=== PATIENT | female | born 1945 | race Caucasian/White ===

== ENCOUNTER 2017-02-27 20:07 | Observation (INO) | payer OTHER, MEDICARE ==
--- NOTE | 2017-02-27 20:19 | PDOC ---
History of Present Illness - General History Source: Patient Exam Limitations: No Limitations - History of Present Illness Initial Comments: 02/27/17 21:02 The patient is a 71-year-old female, with a significant past medical history of hypertension, chronic anemia requiring transfusion, iron-deficiency anemia, EGD , who presents to the ED with weakness, fatigue, and body aches. The patient had a cough and cold-like symptoms a few weeks ago that resolved. She was urged to come into the ED by her daughter who states that she appeared yellow in color. On exam, pt does appear to be short of breath. Denies any fever, chills, nausea, vomiting, diarrhea, or abdominal pain. Denies any chest pain. PAST MEDICAL HISTORY: hypertension, chronic anemia requiring transfusion, iron- deficiency anemia, EGD PAST SURGICAL HISTORY: no significant history FAMILY HISTORY: no pertinent history HISTORY: Pt lives with family and is employed. MEDICATIONS: reviewed ALLERGIES: As per nursing notes Adult ROS General: +weakness, body aches, fatigue. No fevers or chills, no weight loss HEENT: No change in vision. No sore throat,. No ear pain CardioVascular: No chest pain or shortness of breath Respiratory:No cough, or wheezing. Gastrointestinal: no nausea, vomiting, diarrhea or constipation, No rectal bleeding Genitourinary: No dysuria, hematuria, or frequency Musculoskeletal: No joint or muscle pain or swelling Neurologic: No headache, vertigo, dizziness or loss of consciousness Psychiatric: no depression Skin: No rashes or easy bruising Endocrine: no increased thirst or abnormal weight change Allergic: no skin or latex allergy All other systems reviewed and normal Adult Exam: General: Well-nourished well-developed individual, no acute distress HEENT: Throat: Normal, tonsils normal, no erythema or exudate Neck: Supple, no meningeal signs, no lymphadenopathy Eyes::Pupils equal reactive and round, extraocular motion intact Chest: Nontender to palpation Cardiac: +1/6 systolic flow murmur that is best heard at the right sternal border. S1-S2 normal, regular rate and rhythm, rubs or gallops Respiratory: Lungs clear to auscultation bilateral Abdomen: Soft, nondistended, normal bowel sounds, nontender to palpation diffusely Extremities: Warm, dry, no cyanosis, clubbing, or edema Skin: No rashes Neuro: Alert and oriented x3, nonfocal exam, grossly intact, normal gait Psych: Normal mood and affect <Daniela Melendez - Last Filed: 02/27/17 21:27> - General History Source: Patient Exam Limitations: No Limitations - History of Present Illness Initial Comments: 02/27/17 21:54 A portion of this note was documented by scribe services under my direction. I have reviewed the details of the note, within reason, and agree with the documentation. The case summary and management plan written by me. Assessment and plan: This is a 71-year-old female who comes in complaining of fatigue, weakness and patient was noted to also have some mild dyspnea. Patient's hemoglobin was 7.0. Patient was admitted approximately 2 years ago for iron deficiency anemia and has been on iron. Patient primary care doctor recently decreased her iron dose and she said she had been doing well but now comes in with moderate anemia. Given patient's age of 71 her dyspnea and symptoms she will be placed in observation and will be transfused 2 units of packed cells. Discussed with hospitalist who has accepted patient for observation status. <Beatrice Irving I - Last Filed: 02/27/17 21:57> - General Chief Complaint: Weakness Stated Complaint: weakness Time Seen by Provider: 02/27/17 20:16 Past History <Daniela Melendez - Last Filed: 02/27/17 21:27> - Past Medical History Anemia: Yes Asthma: No Cancer: No Cardiac Disorders: No CVA: No COPD: No CHF: No Dementia: No Diabetes: No GI Disorders: No Disorders: No HTN: Yes Hypercholesterolemia: No Liver Disease: No Seizures: No Thyroid Disease: No - Surgical History Abdominal Surgery: No Appendectomy: No Cardiac Surgery: No Cholecystectomy: No Lung Surgery: No Neurologic Surgery: No Orthopedic Surgery: Yes (RIGHT KNEE ARTHROSCOPY 04) - Suicide/Smoking/Psychosocial Hx Smoking Status: No Smoking History: Never smoked Have you smoked in the past 12 months: No Number of Cigarettes Smoked Daily: 0 Hx Alcohol Use: Yes Drug/Substance Use Hx: No Substance Use Type: None Hx Substance Use Treatment: No <Beatrice Irving I - Last Filed: 02/27/17 21:57> - Past Medical History Allergies/Adverse Reactions: Allergies Allergy/AdvReac Type Severity Reaction Status Date / Time Penicillins Allergy Verified 03/08/15 19:06 Home Medications: Ambulatory Orders Famotidine [Pepcid -] 40 mg PO DAILY 02/27/17 Review of Systems - Review of Systems Able to Perform ROS?: Yes <Daniela Melendez - Last Filed: 02/27/17 21:27> *Physical Exam - Vital Signs Last Vital Signs Temp Pulse Resp BP Pulse Ox 98.1 F 90 20 178/78 100 02/27/17 20:13 02/27/17 20:13 02/27/17 20:13 02/27/17 20:13 02/27/17 20:13 <Daniela Melendez - Last Filed: 02/27/17 21:27> Heart Score/ECG Review - ECG Intrepretation Comment:: 02/27/17 21:28 EKG was reviewed by Dr. Liang at 21:20. Impression: Sinus rhythm with premature supraventricular complexes. Vent Rate: 91 bpm MI Interval: 128 ms QTc: 437 ms <Daniela Melendez - Last Filed: 02/27/17 21:27> ED Treatment Course - LABORATORY CBC & Chemistry Diagram: 02/27/17 21:00 02/27/17 21:00 <Daniela Melendez - Last Filed: 02/27/17 21:27> - LABORATORY CBC & Chemistry Diagram: 02/27/17 21:00 02/27/17 21:00 <Beatrice Irving I - Last Filed: 02/27/17 21:57> *DC/Admit/Observation/Transfer - Attestations Scribe Attestion: 02/27/17 21:05 Documentation prepared by Daniela Melendez, acting as certified medical asst for Beatrice Irving MD. <Daniela Melendez - Last Filed: 02/27/17 21:27> - Discharge Dispostion Admit: Yes <Beatrice Irving I - Last Filed: 02/27/17 21:57> Diagnosis at time of Disposition: Iron (Fe) deficiency anemia Qualifiers: Iron deficiency anemia type: unspecified iron deficiency Qualified Code(s): D50.9 - Iron deficiency anemia, unspecified - Discharge Dispostion Condition at time of disposition: Stable
[2017-02-27 20:22] VITALS: BMI 36.0
[2017-02-27 21:16] LABS: PH,URINE 5.5 (4.5-8); URINE APPEARANCE Clear; URINE BILIRUBIN Negative (NEGATIVE); URINE GLUCOSE (UA) Negative (NEGATIVE); URINE KETONE Negative (NEGATIVE); URINE NITRITE Negative (NEGATIVE); URINE PROTEIN Negative (NEGATIVE); URINE UROBILINOGEN 0.2 (0.2-1.0)
[2017-02-27 21:17] LABS: URINE BLOOD Trace-intact (NEGATIVE); URINE COLOR YELLOW
[2017-02-27 21:34] LABS: ALBUMIN 3.8 g/dl (3.5-5.0); ALK PHOS 59 U/L (32-92); ANION GAP 6 (8-16); BILIRUBIN,TOTAL 0.2 mg/dl (0.2-1.0); BLOOD UREA NITROGEN 21 mg/dl (7-18); CALCIUM 8.9 mg/dl (8.4-10.2); CHLORIDE 103 mmol/L (98-107); CO2 24 mmol/L (22-28); GLUCOSE,RANDOM 162 mg/dl (74-106); POTASSIUM 4.5 mmol/L (3.5-5.1); SGOT/AST 23 U/L (10-42); SGPT/ALT 12 U/L (10-40); SODIUM 133 mmol/L (136-145)
[2017-02-27 21:39] LABS: BASO % 0.5 % (0-2.0); EOS % 2.1 % (0-4.5); HEMATOCRIT 22.6 % (32.4-45.2); LYMPH % 19.1 % (8-40); MCH 23.4 pg (25.7-33.7); MCHC 30.8 g/dl (32.0-36.0); MEAN CELL VOLUME 75.9 fl (80-96); MEAN PLT VOLUME 8.6 fl (7.5-11.1); MONO % 10.8 % (3.8-10.2); NEUT % 67.5 % (42.8-82.8); PLATELET COUNT 515 K/MM3 (134-434); RBC 2.98 M/mm3 (3.60-5.2); RDW 19.3 % (11.6-15.6); WHITE BLOOD COUNT 8.1 K/mm3 (4.0-10.8)
[2017-02-27 21:43] LABS: ADD RBC MORPHOLOGY YES
[2017-02-27 21:48] LABS: EPI CELLS FEW /HPF; URINE WBC 0-2 (0-5)
[2017-02-27 21:49] LABS: URINE BACTERIA FEW /hpf (NEGATIVE)
[2017-02-27 21:58] LABS: TROPONIN I (DFP) < 0.03 ng/ml (0.03-0.50)
[2017-02-27 23:24] LABS: ANISOCYTOSIS 2+; PLATELET ESTIMATE SLT INCREASE
--- NOTE | 2017-02-27 23:57 | HP ---
CHIEF COMPLAINT: weakness, fatigue PCP: Kavithaer HISTORY OF PRESENT ILLNESS: This is a 71 year old female with a past medical history of HTN, chronic anemia , iron deficiency, hiatal hernia presented to the ED with generalized weakness, fatigue and body aches. She denies any recent dark stool. She has had complete GI workup in the past including capsule study which all revealed no active sites of bleeding. She reports that she was recently taken off her iron supplementation as her Hgb has been very good. ER course was notable for: (1) Hgb 7.0 (2) Sodium 133 Recent Travel: pt denies PAST MEDICAL HISTORY: HTN chronic iron deficiency anemia, last transfusion 2y ago Hiatal hernia PAST SURGICAL HISTORY: L knee arthroscopy Social History: Smoking: pt denies Alcohol: on weekends, occ bottle of wine over the course of the weekend Drugs: pt denies Family History: mother , late 80s, multiple respiratory issues, 4vCABG in her 70s, h/o anemia father late 80s, fire, had stomach CA, recovered and lived many more years sister had [facility] age 38 sisters with CARMEN Allergies Penicillins Allergy (Verified 03/08/15 19:06) HOME MEDICATIONS: 3 Medication Instructions Recorded Famotidine [Pepcid -] 40 mg PO DAILY 02/27/17 Ramipril 10 mg PO DAILY REVIEW OF SYSTEMS CONSTITUTIONAL: Present: generalized weakness, malaise Absent: fever, chills, diaphoresis, loss of appetite, weight change HEENT: Absent: rhinorrhea, nasal congestion, throat pain, throat swelling, difficulty swallowing, mouth swelling, ear pain, eye pain, visual changes CARDIOVASCULAR: Absent: chest pain, syncope, palpitations, irregular heart rate, lightheadedness , peripheral edema RESPIRATORY: Present: shortness of breath, dyspnea with exertion Absent: cough, orthopnea, wheezing, stridor, hemoptysis GASTROINTESTINAL: Absent: abdominal pain, abdominal distension, nausea, vomiting, diarrhea, constipation, melena, hematochezia GENITOURINARY: Absent: dysuria, frequency, urgency, hesitancy, hematuria, flank pain, genital pain MUSCULOSKELETAL: Present: arthralgia Absent: myalgia, joint swelling, back pain, neck pain SKIN: Absent: rash, itching, pallor HEMATOLOGIC/IMMUNOLOGIC: Absent: easy bleeding, easy bruising, lymphadenopathy, frequent infections ENDOCRINE: Absent: unexplained weight gain, unexplained weight loss, heat intolerance, cold intolerance NEUROLOGIC: Absent: headache, focal weakness or paresthesias, dizziness, unsteady gait, seizure, mental status changes, bladder or bowel incontinence PSYCHIATRIC: Absent: anxiety, depression, suicidal or homicidal ideation, hallucinations. PHYSICAL EXAMINATION Vital Signs - 24 hr 3 02/27/17 02/27/17 02/27/17 20:13 21:27 22:22 23:05 Temperature 98.1 F 98.4 F 98.1 F Pulse Rate 90 82 Pulse Rate [ 82 Right Radial] Respiratory 20 20 18 Rate Blood Pressure 178/78 183/79 Blood Pressure 143/63 [Right Arm] O2 Sat by Pulse 100 98 98 100 Oximetry (%) GENERAL: Awake, alert, and fully oriented, in no acute distress. HEAD: Normal with no signs of trauma. EYES: Pupils equal, round and reactive to light, extraocular movements intact, sclera anicteric, conjunctiva pale. No lid lag. EARS, NOSE, THROAT: Ears normal, nares patent, oropharynx clear without exudates. Moist mucous membranes. NECK: Normal range of motion, supple without lymphadenopathy, JVD, or masses. LUNGS: Breath sounds equal, clear to auscultation bilaterally. No wheezes, and no crackles. No accessory muscle use. HEART: Regular rate and rhythm, normal S1 and S2 + 1/6 murmur, without rub or gallop. ABDOMEN: Soft, nontender, not distended, normoactive bowel sounds, no guarding, no rebound, no masses. No hepatomegaly or splenomegaly. MUSCULOSKELETAL: Normal range of motion at all joints. No bony deformities or tenderness. No CVA tenderness. UPPER EXTREMITIES: 2+ pulses, warm, well-perfused. No cyanosis. No clubbing. No peripheral edema. LOWER EXTREMITIES: 2+ pulses, warm, well-perfused. No calf tenderness. No peripheral edema. NEUROLOGICAL: Cranial nerves II-XII intact. Normal speech. Normal gait. PSYCHIATRIC: Cooperative. Good eye contact. Appropriate mood and affect. SKIN: Pale, Warm, dry, normal turgor, no rashes or lesions noted, normal capillary refill. Laboratory Results - last 24 hr 3 02/27/17 02/27/17 02/27/17 02/27/17 21:00 21:00 21:00 21:43 WBC 8.1 D RBC 2.98 L D Hgb 7.0 L D Hct 22.6 L D MCV 75.9 L MCH 23.4 L MCHC 30.8 L RDW 19.3 H D Plt Count 515 H D MPV 8.6 Neutrophils % 67.5 Lymphocytes % 19.1 Monocytes % 10.8 H Eosinophils % 2.1 Basophils % 0.5 Hypochromia 2+ Platelet Estimate Slt increase Anisocytosis 2+ Sodium 133 L Potassium 4.5 Chloride 103 Carbon Dioxide 24 Anion Gap 6 L BUN 21 H D Creatinine 1.0 D Creat Clearance w eGFR 54.97 Random Glucose 162 H Calcium 8.9 Total Bilirubin 0.2 D AST 23 D ALT 12 D Alkaline Phosphatase 59 Creatine Kinase 43 Troponin I < 0.03 L Total Protein 7.0 Albumin 3.8 Urine Color Yellow Urine Appearance Clear Urine pH 5.5 Ur Specific [place] <= 1.005 Urine Protein Negative Urine Glucose (UA) Negative Urine Ketones Negative Urine Blood Trace-intact H Urine Nitrite Negative Urine Bilirubin Negative Urine Urobilinogen 0.2 Ur Leukocyte Esterase Trace H Urine RBC 2-4 Urine WBC 0-2 Ur Epithelial Cells Few Urine Bacteria Few Blood Type A POSITIVE Antibody Screen Negative Crossmatch See Detail ECG sinus rhythm with premature supraventricular complexes Vent rate 91, QTC [address] / T changes ASSESSMENT/PLAN: 71yF with PMH HTN, iron deficiency anemia, hiatal hernia presented to the ED with generalized weakness, lethargy. anemia - transfuse 1u PRBC then repeat CBC, if still less than 8, will transfuse 1 more unit - f/u with Dr. Muro as outpatient, restart oral iron therapy as outpatient - has had full workup in past for same, will defer any current inpatient workup. rec f/u with GI outpatient HTN - cont home ramipril, if bp remains elevated, increase dose - pt states that she is very nervous and her BP goes up when she is nervous Hiatal hernia - cont home famotidine, f/u with GI as outpatient DVT PPX - deferred as LOS expected <48h FEN - tolerating po - bmp in am - low sodium diet Dispo: pt currently requires inpatient observation for management of her emergent condition. Visit type - Emergency Visit Emergency Visit: Yes ED Registration Date: 02/27/17 Care time: The patient presented to the Emergency Department on the above date and was hospitalized for further evaluation of their emergent condition. - New Patient This patient is new to me today: Yes Date on this admission: 02/27/17 - Critical Care Critical Care patient: No
[2017-02-28] MEDS ORDERED: RANITIDINE HCL 150 MG TABLET (FP) PO SCH (00:15)
[2017-02-28 08:21] LABS: HEMATOCRIT 22.9 % (32.4-45.2); HEMOGLOBIN 7.2 GM/dl (10.7-15.3); MCH 24.4 pg (25.7-33.7); MCHC 31.6 g/dl (32.0-36.0); MEAN CELL VOLUME 77.1 fl (80-96); MEAN PLT VOLUME 8.4 fl (7.5-11.1); PLATELET COUNT 365 K/MM3 (134-434); RBC 2.96 M/mm3 (3.60-5.2); RDW 18.3 % (11.6-15.6); WHITE BLOOD COUNT 5.7 K/mm3 (4.0-10.8)
[2017-02-28 08:36] LABS: ANION GAP 6 (8-16); BLOOD UREA NITROGEN 16 mg/dl (7-18); CHLORIDE 107 mmol/L (98-107); CO2 25 mmol/L (22-28); CREATININE 0.8 mg/dl (0.6-1.3); GLUCOSE,RANDOM 144 mg/dl (74-106); PHOSPHOROUS 4.1 mg/dl (2.5-4.6); POTASSIUM 5.2 mmol/L (3.5-5.1); SODIUM 138 mmol/L (136-145)
[2017-02-28 09:12] LABS: PLATELET ESTIMATE ADEQUATE
[2017-02-28] MEDS ORDERED: RAMIPRIL 5 MG CAPSULE (FP) PO SCH (10:00)
--- NOTE | 2017-02-28 13:24 | DS ---
Physical Exam: SUBJECTIVE: Patient seen and examined, reports feeling better, denies any shortness of breath, chest pain or dyspnea upon exertion. OBJECTIVE:This is a 71 year old female with a past medical history of HTN, chronic anemia, iron deficiency, hiatal hernia presented to the ED with generalized weakness, fatigue and body aches. She denies any recent dark stool. She has had complete GI workup in the past including capsule study which all revealed no active sites of bleeding. She reports that she was recently taken off her iron supplementation as her Hgb has been very good. ER course was notable for: (1) Hgb 7.0 (2) Sodium 133 Vital Signs Period Temp Pulse Resp BP Sys/Watters Pulse Ox Last 24 Hr 98.1 F-98.7 F 71-90 17-20 143-183/53-79 97-100 PHYSICAL EXAM GENERAL: The patient is awake, alert, and fully oriented, in no acute distress. HEAD: Normal with no signs of trauma. EYES: PERRL, extraocular movements intact, sclera anicteric, conjunctiva clear. ENT: Ears normal, nares patent, oropharynx clear without exudates, moist mucous membranes. NECK: Trachea midline, full range of motion, supple. LUNGS: Breath sounds equal, clear to auscultation bilaterally, no wheezes, no crackles, no accessory muscle use. HEART: Regular rate and rhythm, S1, S2 without murmur, rub or gallop. ABDOMEN: Soft, nontender, nondistended, normoactive bowel sounds, no guarding, no rebound, no hepatosplenomegaly, no masses. EXTREMITIES: 2+ pulses, warm, well-perfused, no edema. NEUROLOGICAL: Cranial nerves II through XII grossly intact. Normal speech, gait not observed. PSYCH: Normal mood, normal affect. SKIN: Warm, dry, normal turgor, no rashes or lesions noted. LABS Laboratory Results - last 24 hr CBC WBC 5.7 K/mm3 (4.0-10.8) 02/28/17 14:00 RBC 3.54 M/mm3 (3.60-5.2) L 02/28/17 14:00 Hgb 8.6 GM/dl (10.7-15.3) L D 02/28/17 14:00 Hct 27.7 % (32.4-45.2) L D 02/28/17 14:00 MCV 78.3 fl (80-96) L 02/28/17 14:00 MCH 24.3 pg (25.7-33.7) L 02/28/17 14:00 MCHC 31.0 g/dl (32.0-36.0) L 02/28/17 14:00 RDW 18.1 % (11.6-15.6) H 02/28/17 14:00 Plt Count 401 K/MM3 (134-434) 02/28/17 14:00 MPV 8.2 fl (7.5-11.1) 02/28/17 14:00 Neutrophils % Gis Developer 02/28/17 14:00 Neutrophils % (Manual) 84.0 % (42.8-82.8) H 02/28/17 14:00 Band Neutrophils % 2.0 % (0-10) 02/28/17 07:30 Lymphocytes % Gis Developer 02/28/17 14:00 Lymphocytes % (Manual) 12.0 % (8-40) D 02/28/17 14:00 Monocytes % Gis Developer 02/28/17 14:00 Monocytes % (Manual) 3 % (3.8-10.2) L 02/28/17 14:00 Eosinophils % Gis Developer 02/28/17 14:00 Eosinophils % (Manual) 1.0 % (0-4.5) 02/28/17 14:00 Basophils % Gis Developer 02/28/17 14:00 Metamyelocytes 1 % (0-2) 02/28/17 07:30 Hypochromia 1+ 02/28/17 14:00 Platelet Estimate Slt increase 02/28/17 14:00 Anisocytosis 1+ 02/28/17 14:00 CMP Sodium 138 mmol/L (136-145) 02/28/17 07:30 Potassium 5.2 mmol/L (3.5-5.1) H 02/28/17 07:30 Chloride 107 mmol/L (98-107) 02/28/17 07:30 Carbon Dioxide 25 mmol/L (22-28) 02/28/17 07:30 Anion Gap 6 (8-16) L 02/28/17 07:30 BUN 16 mg/dl (7-18) D 02/28/17 07:30 Creatinine 0.8 mg/dl (0.6-1.3) 02/28/17 07:30 Creat Clearance w eGFR 54.97 (>60) 02/27/17 21:00 Random Glucose 144 mg/dl (74-106) H 02/28/17 07:30 Calcium 9.0 mg/dl (8.4-10.2) 02/28/17 07:30 Phosphorus 4.1 mg/dl (2.5-4.6) 02/28/17 07:30 Magnesium 2.0 mg/dL (1.8-2.4) 02/28/17 07:30 Total Bilirubin 0.2 mg/dl (0.2-1.0) D 02/27/17 21:00 AST 23 U/L (10-42) D 02/27/17 21:00 ALT 12 U/L (10-40) D 02/27/17 21:00 Alkaline Phosphatase 59 U/L (32-92) 02/27/17 21:00 Creatine Kinase 43 IU/L (26-192) 02/27/17 21:00 Troponin I < 0.03 ng/ml (0.03-0.50) L 02/27/17 21:00 Total Protein 7.0 g/dl (6.4-8.3) 02/27/17 21:00 Albumin 3.8 g/dl (3.5-5.0) 02/27/17 21:00 HOSPITAL COURSE: * microcytoic anemia, transfused 2 units of PRBC, f/u with Dr. Muro as outpatient, restart oral iron therapy as outpatient, had full workup in past for same, will defer any current inpatient workup. rec f/u with GI outpatient ( [facility]). * blood pressure at goal continue home ramipril * Hiatal hernia continue home famotidine, f/u with GI as outpatient Date of Admission:02/27/17 Date of Discharge: 02/28/17 Minutes to complete discharge: 45 Discharge Summary Reason For Visit: IRON DEFICIENCY ANEMIA Current Active Problems Iron (Fe) deficiency anemia (Chronic) Condition: Stable - Instructions Diet, Activity, Other Instructions: - continue all medications as prescribed - continue iron supplements daily - please follow up with Dr Muro within 1 week - if any new or persistent symptoms develop please return to the emergency department Referrals: Xu Muro MD [Staff Physician] - 1 Week Disposition: HOME - Home Medications Comprehensive Discharge Medication List: Ambulatory Orders Famotidine [Pepcid -] 40 mg PO DAILY 02/27/17 This patient is new to me today: Yes Date on this admission: 02/28/17 Emergency Visit: No Critical Care patient: No - Discharge Referral Referred to [facility] Yes Physician Referral: Xu Muro MD (Int Med)
[2017-02-28 14:18] VITALS: BP 129/52; PULSE 72; TEMP 98.8
[2017-02-28 15:07] LABS: HEMATOCRIT 27.7 % (32.4-45.2); HEMOGLOBIN 8.6 GM/dl (10.7-15.3); MCH 24.3 pg (25.7-33.7); MEAN CELL VOLUME 78.3 fl (80-96); MEAN PLT VOLUME 8.2 fl (7.5-11.1); PLATELET COUNT 401 K/MM3 (134-434); RBC 3.54 M/mm3 (3.60-5.2); RDW 18.1 % (11.6-15.6); WHITE BLOOD COUNT 5.7 K/mm3 (4.0-10.8)
[2017-02-28 15:08] LABS: ADD RBC MORPHOLOGY YES
--- NOTE | 2017-02-28 15:39 | EKG ---
Test Reason : Blood Pressure : / mmHG Vent. Rate : 091 BPM Atrial Rate : 091 BPM P-R Int : 128 ms QRS Dur : 076 ms QT Int : 356 ms P-R-T Axes : 006 -05 042 degrees QTc Int : 437 ms SINUS RHYTHM WITH PREMATURE SUPRAVENTRICULAR COMPLEXES OTHERWISE NORMAL ECG WHEN COMPARED WITH ECG OF 17-FEB-2001 18:57, PREMATURE VENTRICULAR COMPLEXES ARE NO LONGER PRESENT Confirmed by BARRINGTON OMER MD ([id number]) on 02/28/2017 3:39:02 PM Referred By: DR LARSEN Confirmed By:BARRNIGTON OMER MD
[2017-02-28 22:36] LABS: ANISOCYTOSIS 1+; PLATELET ESTIMATE SLT INCREASE
== END 2017-02-28 16:45 | disposition home or self-care (01) ==
LOC: FER 20:07 → FM/S 22:37
PROVIDERS: ADMIT Internal Medicine; ATTEND Nurse Practitioner Family
PROC: 30233N1 Transfusion of Nonautologous Red Blood Cells into Peripheral Vein, Percutaneous Approach (ICD-10-PCS; principal; 2017-02-27)
DX: D50.9 Iron deficiency anemia, unspecified (principal); I10 Essential (primary) hypertension; Z88.0 Allergy status to penicillin
CPT/HCPCS: 36415; 36430; 71020-TC; 80048; 80053; 81003; 81015; 82550; 83735; 84100; 84484; 85025; 86850; 86900; 86901; 86922; 93005; 99284-25; G0378; P9038; P9058

== ENCOUNTER 2019-04-04 16:30 | Emergency (ER) | payer OTHER, MEDICARE ==
[2019-04-04 19:08] VITALS: BP 173/86; PULSE 82; TEMP 98; BMI 27.4
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
== END 2019-04-04 21:48 | disposition home or self-care (01) ==
LOC: FER 16:30
DX: M71.38 Other bursal cyst, other site (principal); Z88.0 Allergy status to penicillin; I10 Essential (primary) hypertension; D64.9 Anemia, unspecified
CPT/HCPCS: 73560-TC-RT-FY; 93971-TC; 99282-25

== ENCOUNTER 2021-12-20 12:40 | Emergency (ER) | payer OTHER, MEDICARE ==
[2021-12-20 13:02] VITALS: BP 171/90; PULSE 85; RESP 16; TEMP 98; BMI 36.0
[2021-12-20 14:21] LABS: HEMATOCRIT 26.3 % (32.4-45.2); HEMOGLOBIN 8.5 G/dL (10.7-15.3); MCHC 32.4 g/dl (32.0-36.0); MEAN PLT VOLUME 7.4 fl (7.5-11.1); RBC 3.41 10^6/uL (3.60-5.2); RDW 16.2 % (11.6-15.6); WHITE BLOOD COUNT 7.9 10^3/uL (4.0-10.8)
[2021-12-20 14:27] LABS: BILIRUBIN,TOTAL 0.5 mg/dl (0.2-1); CALCIUM 9.4 mg/dl (8.5-10); CREATININE 0.9 mg/dl (0.55-1.3); TOT PROT 7.2 g/dl (6.4-8.2)
[2021-12-20 14:33] LABS: PLATELET ESTIMATE ADEQUATE
== END 2021-12-20 15:24 | disposition home or self-care (01) ==
LOC: FER 12:40
DX: I30.9 Acute pericarditis, unspecified (principal)
CPT/HCPCS: 0241U-QW; 36415; 71045-TC-FY; 80053; 84484; 85027; 93005; 99285-25

== ENCOUNTER 2023-04-12 16:37 | Observation (INO) | payer OTHER, MEDICARE ==
[2023-04-12 16:58] VITALS: BMI 31.7
[2023-04-12 17:18] LABS: HEMATOCRIT 20.2 % (32.4-45.2); MCHC 27.5 g/dl (32.0-36.0); MEAN CELL VOLUME 72.6 fl (80-96); MEAN PLT VOLUME 7.8 fl (7.5-11.1); PLATELET COUNT 297.1 10^3/uL (134-434); RBC 2.78 10^6/uL (3.60-5.2); RDW 23.8 % (11.6-15.6); WHITE BLOOD COUNT 3.3 10^3/uL (4.0-10.8)
[2023-04-12 17:20] LABS: HEMOGLOBIN 5.6 G/dL (10.7-15.3)
[2023-04-12 17:25] LABS: INR 1.1 (0.83-1.09); PROTHROMBIN TIME (PATIENT) 12.8 SEC (9.7-13.0)
[2023-04-12] MEDS ORDERED: ACETAMINOPHEN 325 MG TABLET (FP) PO PRN (17:32)
[2023-04-12 17:35] LABS: ALBUMIN 3.8 g/dl (3.4-5.0); BILIRUBIN,TOTAL 0.3 mg/dl (0.2-1); CALCIUM 9.1 mg/dl (8.5-10.1); CREATININE 0.8 mg/dl (0.6-1.3); POTASSIUM 4.4 mmol/L (3.5-5.1); TOT PROT 5.9 g/dl (6.4-8.2)
[2023-04-13] MEDS ORDERED: amLODIPine BESYLATE 5 MG TABLET (FP) PO ONE (01:05)
[2023-04-13 08:23] LABS: HEMOGLOBIN 7.4 G/dL (10.7-15.3); MCH 22.8 pg (25.7-33.7); MCHC 29.8 g/dl (32.0-36.0); MEAN CELL VOLUME 76.5 fl (80-96); MEAN PLT VOLUME 8.4 fl (7.5-11.1); PLATELET COUNT 256.3 10^3/uL (134-434); RBC 3.27 10^6/uL (3.60-5.2); RDW 22.1 % (11.6-15.6); WHITE BLOOD COUNT 4.1 10^3/uL (4.0-10.8)
[2023-04-13] MEDS: RAMIPRIL 5 MG CAPSULE PO SCH (09:29)
[2023-04-13 09:36] LABS: CALCIUM 8.9 mg/dl (8.5-10.1); CREATININE 0.7 mg/dl (0.6-1.3); POTASSIUM 4.3 mmol/L (3.5-5.1)
[2023-04-13] MEDS: PANTOPRAZOLE 40 MG TABLET PO SCH (10:40)
[2023-04-13] MEDS ORDERED: IRON SUCROSE INJECTION 200 MG in SODIUM CHLORIDE 90 ML IVPB ONE (20:00)
[2023-04-13] MEDS ORDERED: ROSUVASTATIN CA 5 MG TABLET PO SCH (22:00)
[2023-04-14 02:52] VITALS: RESP 18
[2023-04-14 08:53] LABS: ALBUMIN 3.4 g/dl (3.4-5.0); BILIRUBIN,TOTAL 0.8 mg/dl (0.2-1); CALCIUM 8.9 mg/dl (8.5-10.1); CREATININE 0.7 mg/dl (0.6-1.3); POTASSIUM 4.7 mmol/L (3.5-5.1); TOT PROT 5.3 g/dl (6.4-8.2)
[2023-04-14] MEDS: RAMIPRIL 5 MG CAPSULE PO SCH (09:47)
[2023-04-14] MEDS: PANTOPRAZOLE 40 MG TABLET PO SCH (09:47)
[2023-04-14 10:23] LABS: EOS % 4.8 % (0-4.5); HEMATOCRIT 28.3 % (32.4-45.2); HEMOGLOBIN 8.5 GM/dL (10.7-15.3); LYMPH % 21.5 % (8-40); MCH 23.1 pg (25.7-33.7); MEAN CELL VOLUME 77.1 fl (80-96); MONO % 11.4 % (3.8-10.2); NEUT % 61.3 % (42.8-82.8); PLATELET COUNT 273 10^3/uL (134-434); RBC 3.67 M/mm3 (3.60-5.2); RDW 23.2 % (11.6-15.6); WHITE BLOOD COUNT 5.2 K/mm3 (4.0-10.0)
[2023-04-14 14:19] VITALS: BP 153/77; PULSE 76; TEMP 98.1
== END 2023-04-14 16:03 | disposition home or self-care (01) ==
LOC: FER 16:37 → FM/S 17:32
PROVIDERS: ADMIT Internal Medicine
PROC: 30233N1 Transfusion of Nonautologous Red Blood Cells into Peripheral Vein, Percutaneous Approach (ICD-10-PCS; principal; 2023-04-12)
PROC: 3E033GC Introduction of Other Therapeutic Substance into Peripheral Vein, Percutaneous Approach (ICD-10-PCS; 2023-04-12)
DX: D50.9 Iron deficiency anemia, unspecified (principal); I10 Essential (primary) hypertension; K44.9 Diaphragmatic hernia without obstruction or gangrene; F41.8 Other specified anxiety disorders; M19.90 Unspecified osteoarthritis, unspecified site; K92.9 Disease of digestive system, unspecified; Z91.148 Patient's other noncompliance with medication regimen for other reason
CPT/HCPCS: 36415; 36430; 80048; 80053; 81003; 82272; 82728; 83010; 83550; 85025; 85027; 85610; 86850; 86900; 86901; 86922; 93005; 96365; 99285-25; G0378; J1756; P9058

== ENCOUNTER 2024-05-22 10:39 | Day surgery (SDC) | payer OTHER, MEDICARE ==
[2024-05-22] MEDS ORDERED: diphenhydrAMINE HCL 50 MG CAPSULE PO PRN (11:11)
[2024-05-22] MEDS ORDERED: HYDROCORTISONE SOD SUCCINATE 100 MG/2 ML VIAL IVPB PRN (11:11)
[2024-05-22] MEDS: DEXAMETHASONE SOD PHOSPHATE 10 MG/1 ML VIAL IVPUSH ONE (11:21)
[2024-05-22] MEDS: IRON SUCROSE INJECTION 200 MG in SODIUM CHLORIDE 100 ML IVPB ONE (11:21)
[2024-05-22 11:37] LABS: HEMATOCRIT 34.7 % (32.4-45.2); HEMOGLOBIN 11.6 G/dL (10.7-15.3); MCH 30.3 pg (25.7-33.7); MCHC 33.4 g/dl (32.0-36.0); MEAN CELL VOLUME 90.9 fl (80-96); MEAN PLT VOLUME 8.4 fl (7.5-11.1); RBC 3.82 10^6/uL (3.60-5.2); RDW 14.1 % (11.6-15.6); WHITE BLOOD COUNT 4.2 10^3/uL (4.0-10.8)
[2024-05-22 12:44] VITALS: BP 128/80; PULSE 67; RESP 16; TEMP 98.3
== END 2024-05-22 12:48 | disposition home or self-care (01) ==
LOC: FINFUSION 10:39 → FM/S 10:40 → FINFUSION 12:48
PROVIDERS: ATTEND Internal Medicine Hematology & Oncology
PROC: 3E033GC Introduction of Other Therapeutic Substance into Peripheral Vein, Percutaneous Approach (ICD-10-PCS; principal; 2024-05-22)
DX: D50.9 Iron deficiency anemia, unspecified (principal)
CPT/HCPCS: 36415; 82728; 83540; 83550; 85027; 96365; J1100; J1756

== ENCOUNTER 2024-06-17 10:09 | Day surgery (SDC) | payer OTHER, MEDICARE ==
[2024-06-17] MEDS ORDERED: diphenhydrAMINE HCL 50 MG CAPSULE PO PRN (11:21)
[2024-06-17] MEDS ORDERED: HYDROCORTISONE SOD SUCCINATE 100 MG/2 ML VIAL IVPUSH PRN (11:22)
[2024-06-17] MEDS: DEXAMETHASONE SOD PHOSPHATE 10 MG/1 ML VIAL IVPUSH ONE (11:35)
[2024-06-17 11:46] LABS: HEMOGLOBIN 11.5 g/dL (11.2-15.7); MCHC 31.9 g/dl (32.2-35.5); MEAN PLT VOLUME 9.8 fl (9.4-12.3); PLATELET COUNT 331 x10^3/uL (182-369); RDW 12.9 % (12.4-16.6)
[2024-06-17] MEDS: IRON SUCROSE INJECTION 200 MG in SODIUM CHLORIDE 100 ML IVPB ONE (12:05)
[2024-06-17 12:59] VITALS: BP 148/71; PULSE 84; RESP 16; TEMP 98.1
== END 2024-06-17 13:00 | disposition home or self-care (01) ==
LOC: FINFUSION 10:09 → FM/S 10:10 → FINFUSION 13:00
PROVIDERS: ATTEND Internal Medicine Hematology & Oncology
PROC: 3E033GC Introduction of Other Therapeutic Substance into Peripheral Vein, Percutaneous Approach (ICD-10-PCS; principal; 2024-06-17)
DX: D50.9 Iron deficiency anemia, unspecified (principal)
CPT/HCPCS: 36415; 82728; 83540; 83550; 85027; 96365; J1100; J1756

== ENCOUNTER 2024-08-25 11:59 | Day surgery (SDC) | payer OTHER, MEDICARE ==
[2024-08-25] MEDS ORDERED: diphenhydrAMINE HCL 50 MG CAPSULE PO PRN (12:22)
[2024-08-25] MEDS ORDERED: HYDROCORTISONE SOD SUCCINATE 100 MG/2 ML VIAL IVPB PRN (12:23)
[2024-08-25] MEDS: DEXAMETHASONE SOD PHOSPHATE 10 MG/1 ML VIAL IVPUSH ONE (12:33)
[2024-08-25] MEDS: IRON SUCROSE INJECTION 200 MG in SODIUM CHLORIDE 100 ML IVPB ONE (12:38)
[2024-08-25 14:43] VITALS: BP 150/81; PULSE 68; RESP 18; TEMP 98.2
== END 2024-08-25 14:44 | disposition home or self-care (01) ==
LOC: FINFUSION 11:59 → FM/S 12:00 → FINFUSION 14:44
PROVIDERS: ATTEND Internal Medicine Hematology & Oncology
PROC: 3E033GC Introduction of Other Therapeutic Substance into Peripheral Vein, Percutaneous Approach (ICD-10-PCS; principal; 2024-08-25)
DX: D50.9 Iron deficiency anemia, unspecified (principal)
CPT/HCPCS: 96365; J1100; J1756

== ENCOUNTER 2024-09-15 12:01 | Day surgery (SDC) | payer OTHER, MEDICARE ==
[2024-09-15] MEDS ORDERED: HYDROCORTISONE SOD SUCCINATE 100 MG/2 ML VIAL IVPB PRN (12:20)
[2024-09-15] MEDS: DEXAMETHASONE SOD PHOSPHATE 10 MG/1 ML VIAL IVPUSH ONE (12:42)
[2024-09-15] MEDS: IRON SUCROSE INJECTION 200 MG in SODIUM CHLORIDE 100 ML IVPB ONE (12:51)
[2024-09-15 14:25] VITALS: BP 170/64; PULSE 98; RESP 17; TEMP 98.2
[2024-09-15 14:34] LABS: MCHC 31.5 g/dl (32.2-35.5); MEAN CELL VOLUME 93.4 fl (79.4-94.8); MEAN PLT VOLUME 9.6 fl (9.4-12.3); RDW 14.1 % (12.4-16.6)
[2024-09-15 17:05] LABS: IRON SERUM 590.0 ug/dL (50-175)
== END 2024-09-15 14:30 | disposition home or self-care (01) ==
LOC: FINFUSION 12:01 → FM/S 12:01 → FINFUSION 14:30
PROVIDERS: ATTEND Internal Medicine Hematology & Oncology
PROC: 3E033GC Introduction of Other Therapeutic Substance into Peripheral Vein, Percutaneous Approach (ICD-10-PCS; principal; 2024-09-15)
DX: D50.9 Iron deficiency anemia, unspecified (principal)
CPT/HCPCS: 36415; 82728; 83540; 85025; 96365; J1100; J1756